=== PATIENT | female | born 2000 | race Two or more races ===

== ENCOUNTER 2022-07-17 05:55 | Day surgery (SDC) | payer OTHER | END 2022-07-17 14:25 | disposition home or self-care (01) | LOC: CIR.AMB 05:55 | PROVIDERS: ATTEND Colon & Rectal Surgery | DX: L05.91 Pilonidal cyst without abscess (principal); Z20.822 Contact with and (suspected) exposure to COVID-19; Z88.6 Allergy status to analgesic agent; Z88.4 Allergy status to anesthetic agent ==